=== PATIENT | female | born 1945 | race Caucasian/White ===

== ENCOUNTER 2024-02-07 12:42 | Outpatient (CLI) | payer MEDICARE, SELFPAY | END 2024-02-07 12:43 | disposition home or self-care (01) | PROVIDERS: PCP Family Medicine; Visit Provider Surgery | DX: L94.2 Calcinosis cutis (principal); L97.325 Non-pressure chronic ulcer of left ankle with muscle involvement without evidence of necrosis; J84.10 Pulmonary fibrosis, unspecified; Z99.81 Dependence on supplemental oxygen; Z95.810 Presence of automatic (implantable) cardiac defibrillator | CPT/HCPCS: 11042; 87070; 87186; G0463 ==

== ENCOUNTER 2024-02-09 12:51 | Outpatient (CLI) | payer MEDICARE, SELFPAY | END 2024-02-09 12:52 | disposition home or self-care (01) | LOC: WOUND 12:52 | PROVIDERS: PCP Family Medicine; Visit Provider Surgery | DX: L94.2 Calcinosis cutis (principal); L97.325 Non-pressure chronic ulcer of left ankle with muscle involvement without evidence of necrosis; R54 Age-related physical debility; Z95.810 Presence of automatic (implantable) cardiac defibrillator | CPT/HCPCS: 29581 ==

== ENCOUNTER 2024-02-14 15:47 | Outpatient (CLI) | payer MEDICARE, SELFPAY | END 2024-02-14 15:48 | disposition home or self-care (01) | LOC: WOUND 15:47 | PROVIDERS: PCP Family Medicine; Visit Provider Family Medicine | DX: L94.2 Calcinosis cutis (principal); L97.322 Non-pressure chronic ulcer of left ankle with fat layer exposed; B96.5 Pseudomonas (aeruginosa) (mallei) (pseudomallei) as the cause of diseases classified elsewhere; R54 Age-related physical debility; Z99.81 Dependence on supplemental oxygen; Z95.810 Presence of automatic (implantable) cardiac defibrillator | CPT/HCPCS: 11042 ==

== ENCOUNTER 2024-02-21 14:20 | Outpatient (CLI) | payer MEDICARE, SELFPAY ==
[2024-02-21 16:03] LABS: Basophils Absolute Auto 0.02 K/uL (0.00-0.30); Basophils Percent Auto 0.4 % (0.0-3.0); Eosinophils Absolute Auto 0.04 K/uL (0.00-0.50); Eosinophils Percent Auto 0.8 % (0.0-7.0); Hematocrit 41.5 % (33.0-51.0); Hemoglobin* 12.8 gm/dL (12.0-16.0); Immature Granulocytes Abs Auto 0.01 K/uL (0.00-0.30); Immature Granulocytes Pct Auto 0.2 %; Lymphocytes Absolute Auto 1.27 K/uL (0.90-2.90); Mean Corpuscular HGB Conc 31 gm/dL (32-36); Mean Corpuscular Hemoglobin 33 pg (26-34); Mean Corpuscular Volume 108 fL (80-100); Monocytes Percent Auto 6.9 % (0.0-11.0); Neutrophils Percent Auto 66.7 % (42.0-72.0); Platelet Count* 151 K/uL (140-440); RDW Coefficient of Variation % 17.7 % (11.5-15.5); Red Blood Count 3.85 m/uL (4.00-5.20); White Blood Count* 5.09 K/uL (4.50-11.00)
[2024-02-21 16:04] LABS: Slide Review Reflex No
[2024-02-21 16:24] LABS: Chloride* 98 mmol/L (96-114); Potassium* 5.3 mmol/L (3.6-5.1); Sodium* 136 mmol/L (135-149)
[2024-02-21 16:27] LABS: Anion Gap 5 mEq/L (7-15); Blood Urea Nitrogen* 31 mg/dL (7-30); Carbon Dioxide* 33 mmol/L (20-32); Creatinine* 0.6 mg/dL (0.5-1.5); Estimated Glomerular Filt Rate 91 ml/min; Glucose* 104 mg/dL (60-115)
[2024-02-21 16:28] LABS: Calcium* 9.6 mg/dL (8.4-10.6)
[2024-02-21 16:30] LABS: C Reactive Protein* 0.9 mg/dL (0.5-1.0)
[2024-02-21 16:56] LABS: Erythrocyte SedimentationRate* 55 mm/hr (2-20)
== END 2024-02-21 14:21 | disposition home or self-care (01) ==
LOC: WOUND 14:21
PROVIDERS: PCP Family Medicine; Visit Provider Physician Assistant
DX: L94.2 Calcinosis cutis (principal); L97.322 Non-pressure chronic ulcer of left ankle with fat layer exposed; R54 Age-related physical debility; Z95.810 Presence of automatic (implantable) cardiac defibrillator; Z99.81 Dependence on supplemental oxygen
CPT/HCPCS: 36415; 80048; 85025; 85651; 86140; 97597; G0463

== ENCOUNTER 2024-02-21 15:40 | Outpatient (CLI) | payer MEDICARE, MEDICAID, SELFPAY ==
--- NOTE | 2024-02-21 15:30 | CRLHL7_ITS ---
For Patients: As a result of the Cures Act, medical imaging exams and procedure reports are released immediately into your electronic medical record. You may view this report before your referring provider. If you have questions, please contact your health care provider. Indication: fu distal fibula osteomyelitis left Technique: Two views left tibia and fibula Comparison: None Findings: Diffuse soft tissue calcification. Left knee replacement hardware. No fracture. Osteopenia. No destructive osseous lesion. No acute periostitis. Impression: No evidence of osteomyelitis. Dictated by Khurram Singh MD @ 02/23/2024 12:31:13 PM (Electronically Signed)
== END 2024-02-21 15:41 | disposition home or self-care (01) ==
LOC: RAD 15:41
PROVIDERS: PCP Family Medicine; Visit Provider Family Medicine
DX: M86.60 Other chronic osteomyelitis, unspecified site (principal); L97.325 Non-pressure chronic ulcer of left ankle with muscle involvement without evidence of necrosis
CPT/HCPCS: 36415; 73590; 80048; 85025; 85651; 86140

== ENCOUNTER 2024-02-28 14:55 | Outpatient (CLI) | payer MEDICARE, SELFPAY | END 2024-02-28 14:56 | disposition home or self-care (01) | LOC: WOUND 14:56 | PROVIDERS: PCP Family Medicine; Visit Provider Surgery | DX: L94.2 Calcinosis cutis (principal); L97.325 Non-pressure chronic ulcer of left ankle with muscle involvement without evidence of necrosis; Z95.810 Presence of automatic (implantable) cardiac defibrillator; Z99.81 Dependence on supplemental oxygen | CPT/HCPCS: 11043 ==

== ENCOUNTER 2024-03-06 14:51 | Outpatient (CLI) | payer MEDICARE, SELFPAY | END 2024-03-06 14:52 | disposition home or self-care (01) | LOC: WOUND 14:51 | PROVIDERS: PCP Family Medicine; Visit Provider Surgery | DX: L94.2 Calcinosis cutis (principal); L97.325 Non-pressure chronic ulcer of left ankle with muscle involvement without evidence of necrosis; S81.802S Unspecified open wound, left lower leg, sequela | CPT/HCPCS: 11042; 11043; G0463 ==

== ENCOUNTER 2024-03-13 15:03 | Outpatient (CLI) | payer MEDICARE, SELFPAY | END 2024-03-13 15:04 | disposition home or self-care (01) | LOC: WOUND 15:03 | PROVIDERS: PCP Family Medicine; Visit Provider Surgery | DX: I87.312 Chronic venous hypertension (idiopathic) with ulcer of left lower extremity (principal); L97.328 Non-pressure chronic ulcer of left ankle with other specified severity; L94.2 Calcinosis cutis | CPT/HCPCS: 11042; 11043 ==

== ENCOUNTER 2024-03-20 14:52 | Outpatient (CLI) | payer MEDICARE, SELFPAY | END 2024-03-20 14:53 | disposition home or self-care (01) | LOC: WOUND 14:52 | PROVIDERS: PCP Family Medicine; Visit Provider Physician Assistant | DX: I87.312 Chronic venous hypertension (idiopathic) with ulcer of left lower extremity (principal); L97.322 Non-pressure chronic ulcer of left ankle with fat layer exposed; S81.802A Unspecified open wound, left lower leg, initial encounter; L94.2 Calcinosis cutis; Z95.810 Presence of automatic (implantable) cardiac defibrillator; Z99.81 Dependence on supplemental oxygen | CPT/HCPCS: 15271; 97597; Q4101 ==

== ENCOUNTER 2024-03-27 14:53 | Outpatient (CLI) | payer MEDICARE, SELFPAY | END 2024-03-27 14:54 | disposition home or self-care (01) | LOC: WOUND 14:53 | PROVIDERS: PCP Family Medicine; Visit Provider Physician Assistant | DX: L94.2 Calcinosis cutis (principal); I87.312 Chronic venous hypertension (idiopathic) with ulcer of left lower extremity; L97.325 Non-pressure chronic ulcer of left ankle with muscle involvement without evidence of necrosis | CPT/HCPCS: 97597; G0463 ==

== ENCOUNTER 2024-04-01 13:44 | Outpatient (CLI) | payer MEDICARE, SELFPAY | END 2024-04-01 13:45 | disposition home or self-care (01) | PROVIDERS: PCP Family Medicine; Visit Provider Surgery | DX: R60.0 Localized edema (principal); I83.812 Varicose veins of left lower extremity with pain; L97.325 Non-pressure chronic ulcer of left ankle with muscle involvement without evidence of necrosis | CPT/HCPCS: 93970 ==

== ENCOUNTER 2024-04-03 14:46 | Outpatient (CLI) | payer MEDICARE, SELFPAY | END 2024-04-03 14:47 | disposition home or self-care (01) | PROVIDERS: PCP Family Medicine; Visit Provider Surgery | DX: L94.2 Calcinosis cutis (principal); I87.312 Chronic venous hypertension (idiopathic) with ulcer of left lower extremity; L97.325 Non-pressure chronic ulcer of left ankle with muscle involvement without evidence of necrosis | CPT/HCPCS: 11043; G0463 ==

== ENCOUNTER 2024-04-17 14:50 | Outpatient (CLI) | payer MEDICARE, MEDICAID, SELFPAY | END 2024-04-17 14:51 | disposition home or self-care (01) | LOC: WOUND 14:50 | PROVIDERS: PCP Family Medicine; Visit Provider Surgery | DX: I87.312 Chronic venous hypertension (idiopathic) with ulcer of left lower extremity (principal); L97.328 Non-pressure chronic ulcer of left ankle with other specified severity; L94.2 Calcinosis cutis | CPT/HCPCS: 11043 ==

== ENCOUNTER 2024-04-29 09:19 | Outpatient (CLI) | payer MEDICARE, MEDICAID, SELFPAY | END 2024-04-29 09:20 | disposition home or self-care (01) | LOC: WOUND 09:19 | PROVIDERS: PCP Family Medicine; Visit Provider Nurse Practitioner Family | DX: I87.312 Chronic venous hypertension (idiopathic) with ulcer of left lower extremity (principal); L97.322 Non-pressure chronic ulcer of left ankle with fat layer exposed; L97.522 Non-pressure chronic ulcer of other part of left foot with fat layer exposed; L94.2 Calcinosis cutis | CPT/HCPCS: 11042; 87070; 87186 ==

== ENCOUNTER 2024-05-08 14:55 | Outpatient (CLI) | payer MEDICARE, MEDICAID, SELFPAY | END 2024-05-08 14:56 | disposition home or self-care (01) | LOC: WOUND 14:55 | PROVIDERS: PCP Family Medicine; Visit Provider Surgery | DX: I87.312 Chronic venous hypertension (idiopathic) with ulcer of left lower extremity (principal); L97.328 Non-pressure chronic ulcer of left ankle with other specified severity | CPT/HCPCS: 97597 ==

== ENCOUNTER 2024-05-15 14:50 | Outpatient (CLI) | payer MEDICARE, MEDICAID, SELFPAY | END 2024-05-15 14:51 | disposition home or self-care (01) | LOC: WOUND 14:50 | PROVIDERS: PCP Family Medicine; Visit Provider Surgery | DX: I87.312 Chronic venous hypertension (idiopathic) with ulcer of left lower extremity (principal); L97.328 Non-pressure chronic ulcer of left ankle with other specified severity; L94.2 Calcinosis cutis; Z95.810 Presence of automatic (implantable) cardiac defibrillator; Z99.81 Dependence on supplemental oxygen | CPT/HCPCS: 97597 ==

== ENCOUNTER 2024-05-28 10:20 | Outpatient (CLI) | payer MEDICARE, SELFPAY | END 2024-05-28 10:21 | disposition home or self-care (01) | LOC: WOUND 10:20 | PROVIDERS: PCP Family Medicine; Visit Provider Nurse Practitioner Family | DX: I87.312 Chronic venous hypertension (idiopathic) with ulcer of left lower extremity (principal); L97.328 Non-pressure chronic ulcer of left ankle with other specified severity; L94.2 Calcinosis cutis | CPT/HCPCS: 97597 ==

== ENCOUNTER 2024-06-05 14:58 | Outpatient (CLI) | payer MEDICARE, SELFPAY | END 2024-06-05 14:59 | disposition home or self-care (01) | LOC: WOUND 14:58 | PROVIDERS: PCP Family Medicine; Visit Provider Family Medicine | DX: I87.312 Chronic venous hypertension (idiopathic) with ulcer of left lower extremity (principal); L97.322 Non-pressure chronic ulcer of left ankle with fat layer exposed; L94.2 Calcinosis cutis | CPT/HCPCS: 11042 ==

== ENCOUNTER 2024-07-04 15:08 | Outpatient (CLI) | payer MEDICARE, SELFPAY | END 2024-07-04 15:09 | disposition home or self-care (01) | LOC: WOUND 15:08 | PROVIDERS: PCP Family Medicine; Visit Provider Nurse Practitioner Family | DX: I87.312 Chronic venous hypertension (idiopathic) with ulcer of left lower extremity (principal); L97.325 Non-pressure chronic ulcer of left ankle with muscle involvement without evidence of necrosis; L94.2 Calcinosis cutis | CPT/HCPCS: 97597 ==

== ENCOUNTER 2024-07-10 14:53 | Outpatient (CLI) | payer MEDICARE, SELFPAY | END 2024-07-10 14:54 | disposition home or self-care (01) | LOC: WOUND 14:53 | PROVIDERS: PCP Family Medicine; Visit Provider Surgery | DX: I87.312 Chronic venous hypertension (idiopathic) with ulcer of left lower extremity (principal); L97.325 Non-pressure chronic ulcer of left ankle with muscle involvement without evidence of necrosis; L94.2 Calcinosis cutis; R54 Age-related physical debility | CPT/HCPCS: 97597 ==